=== PATIENT | male | born 1985 | race Caucasian/White ===

== ENCOUNTER 2017-01-21 13:39 | Emergency (ER) | payer OTHER ==
[~2017-01-21] VITALS: Ht 172.7 cm; Wt 86.2 kg
--- NOTE | ~2017-01-21 | CT71 ---
[facility] A Service of [facility] RADIOLOGY TEXT RESULTS PATIENT: BERT LOYA LOCATION: [facility] : [birth year] UNIT #: [id number] AGE: [address]: Taye Hutton MD SEX: M ORDER DR: [id number] [facility] [address] [place], [place] [address] [id number] MR#: [id number] Acc #: [id number] NAME: BERT LOYA : 1985 SEX: M STUDY DATE/TIME: 01/21/2017 16:29 UNIT: [facility] ROOM: STUDY DESCRIPTION: CT Head Wo Contrast Attending Physician: Taye Hutton M.D. Ordering Physician: Taye Hutton M.D. Primary Care Physician: Primary Care Physician No MEDICAL IMAGING REPORT This report is preliminary unless electronic signature is present EXAM Head CT no contrast 01/21/2017 INDICATION 31-year-old male with "eye sight moving", dizziness for 2 weeks, hypertension. TECHNIQUE Noncontrast CT of the brain was performed. We have no comparisons. This CT examination was performed with one or more of the following radiation dose reduction techniques: automatic exposure control, adjustment of mA and/or kV according to patient size, and iterative reconstruction. FINDINGS There is streak artifact related to jewelry. These were apparently the best images possible. Sulci and ventricles are unremarkable. No midline shift. No evidence of acute intracranial hemorrhage. There is no mass, mass effect or edema to suggest acute infarct and no extraaxial fluid collections are identified. Globes intact. Bones intact. Minimal ethmoid sinus disease. IMPRESSION Negative noncontrast CT of the brain. Dictated by... Dav Ellis M.D. THIS IS AN ELECTRONICALLY VERIFIED REPORT Dav Ellis M.D. at 01/22/2017 7:30 AM MERVIN/aston [facility] A Service of [facility] RADIOLOGY TEXT RESULTS PATIENT: BERT LOYA LOCATION: [facility] : [birth year] UNIT #: [id number] AGE: [address]: Taye Hutton MD SEX: M ORDER DR: TD: 01/22/2017 06:43 JOB #: [id number] MEDICAL IMAGING REPORT Page 1 of 1 COPY
--- NOTE | ~2017-01-21 | CR72 ---
[facility] A Service of [facility] RADIOLOGY TEXT RESULTS PATIENT: BERT LOYA LOCATION: [facility] : [birth year] UNIT #: [id number] AGE: [address]: Taye Hutton MD SEX: M ORDER DR: [id number] [facility] [address] [place], [place] [address] [id number] E MR#: [id number] Acc #: [id number] NAME: BERT LOYA : 1985 SEX: M STUDY DATE/TIME: 01/21/2017 15:16 UNIT: [facility] ROOM: STUDY DESCRIPTION: CR Chest Single View Portable Attending Physician: Taye Hutton M.D. Ordering Physician: Taye Hutton M.D. Primary Care Physician: No Primary Care Physician MEDICAL IMAGING REPORT This report is preliminary unless electronic signature is present EXAM Portable chest, 01/21. INDICATION Dizziness, lightheadedness, shortness of air for 2 weeks. COMPARISON 03/22/2011 FINDINGS A single AP portable view of the chest shows both lungs to be clear. The heart is normal in size. The mediastinal contour is normal. No significant bone abnormalities are seen. IMPRESSION Normal portable chest. Dictated by... Warner Majano Jr., M.D. THIS IS AN ELECTRONICALLY VERIFIED REPORT Warner Majano Jr., M.D. at 01/22/2017 8:30 AM BRE/alayna TD: 01/22/2017 02:25 JOB #: [id number] MEDICAL IMAGING REPORT Page 1 of 1 COPY
--- NOTE | ~2017-01-21 | EKG ---
PATIENT: BERT LOYA UNIT #: [id number] Ventricular Rate: 74 BPM Atrial Rate: 74 BPM P-R Interval: 156 ms QRS Duration: 78 ms Q-T Interval: 364 ms QTC Calculation(Bezet): 404 ms P [place]: 49 degrees Calculated R [place]: 6 degrees Calculated T [place]: 21 degrees Diagnosis Line: Normal sinus rhythm Diagnosis Line: Normal ECG Diagnosis Line: When compared with ECG of 22-MAR-2011 02:12, Diagnosis Line: ST elevation has replaced ST depression in Diagnosis Line: Anterior leads Diagnosis Line: Confirmed by JULIANA BRITT MD ([id number]) on Diagnosis Line: 01/23/2017 10:50:36 AM INTERPRETING MD: LORENZA SOW
[~2017-01-21 13:39] MED LIST: FLEXERIL10 MG PO; NO MEDICATIONS; VICODIN 5/1 TAB 5/50 PO; ZESTRIL5 MG PO
[2017-01-21 15:20] LABS: BASOPHIL% 0.5 % (0-2.5); EOSINOPHIL# 0.3 X10e3 (0-0.7); EOSINOPHIL% 3.5 % (0.0-7.0); LYMPHOCYTE# 1.5 X10e3 (1.0-3.5); LYMPHOCYTE% 19.4 % (17.0-45.0); MEAN CELL VOLUME 87.9 FL (83-96); MEAN CORPUSCULAR HEMOGLOBIN 29.3 PG (28-34); MEAN CORPUSCULAR HGB CONC 33.4 g/dL (30-36); MEAN PLATELET VOLUME 9.4 FL (6.5-11.5); MONOCYTE# 0.9 X10e3 (0-1.0); MONOCYTE% 11.7 % (3.0-12.0); NEUTROPHIL# 5.1 X10e3 (1.5-7.1); NEUTROPHIL% 64.9 % (40-75); PLATELET COUNT 258 X10e3 (140-420); RED BLOOD COUNT 5.45 X10e (3.90-5.60); RED CELL DISTRIBUTION WIDTH 13.4 % (11.0-15.5); WHITE BLOOD COUNT 7.9 X10e3 (4.0-10.5)
[2017-01-21 15:21] LABS: DIFF IND NO
[2017-01-21 15:30] LABS: POC - CKMB <1.0 ng/mL (0.0-7.9); POC - TROPONIN <0.05 ng/mL (<=0.05)
[2017-01-21 15:31] LABS: URINE SOURCE CLEAN CATCH
[2017-01-21 15:40] LABS: URINE APPEARANCE CLEAR; URINE BILIRUBIN NEG (NEG); URINE BLOOD NEG (NEG); URINE COLOR YELLOW; URINE GLUCOSE NEG (NEG); URINE KETONE NEG (NEG); URINE LEUKOCYTE ESTERASE NEG (NEG); URINE NITRATE NEG (NEG); URINE PH 7.5 (5-8); URINE PROTEIN NEG (NEG); URINE SPECIFIC GRAVITY 1.027 (1.003-1.035)
[2017-01-21 15:46] LABS: ALBUMIN SERUM 4.4 g/dL (3.5-5.0); BILIRUBIN, DIRECT 0.3 mg/dL (0.0-0.2); BILIRUBIN,INDIRECT 0.5 mg/dL (0.0-0.9); BILIRUBIN,TOTAL 0.8 mg/dL (0.2-2.0); CALCIUM SERUM 9.5 mg/dL (8.4-10.2); GLOM FILT RATE Estimated 99.2 mL/min (>60); POTASSIUM 5.3 mmol/L (3.5-5.1)
[2017-01-21 15:50] LABS: AMPHETAMINE NEG (NEG); BARBITURATES NEG (NEG); BENZODIAZEPINES NEG (NEG); COCAINE NEG (NEG); MARIJUANA NEG (NEG); OPIATES NEG (NEG); TRICYCLIC ANTIDEPRESSANTS NEG (NEG); U METHADONE NEG (NEG)
[2017-01-21 15:52] LABS: CULTURE INDICATED? NO
== END 2017-01-21 18:29 | disposition home or self-care (01) ==
LOC: CED 13:39
PROVIDERS: Emergency Medicine
DX: R42 Dizziness and giddiness (principal); I10 Essential (primary) hypertension; Z79.899 Other long term (current) drug therapy; Z88.8 Allergy status to other drugs, medicaments and biological substances
CPT/HCPCS: 36415; 70450; 71010; 80048; 80076; 80307; 81003; 82553; 82947; 84484; 85025; 93005; 96360; 99285